=== PATIENT | female | born 1940 | race Caucasian/White ===

== ENCOUNTER 2018-08-01 09:30 | Outpatient (RCR) | payer MEDICARE, SELFPAY ==
--- NOTE | 2018-07-19 09:34 | HP.PTEVAL_ITS ---
Patient's Visit Information RADHA WHITESIDE is a 78 year old F referred to Physical Therapy by CONNIE ESTRADA with a diagnosis of Hip Bursitis. Date of Evaluation: 07/19/18 Physical Therapist: Greta Walsh DPT - Visit Plan Frequency: 2x /Week Duration: 4 Weeks Plan: Modality of US- exercises to increase core s/s- postural education - Subjective Findings: Patient reports that she has had right hip and back pain for years and its getting worse. Pain is located in the right hip/back and radiates to the knee and into the low back. Pain is aggravated by stairs (knees), bending over to work outside, mulching Worst:8/10 could barely walk when they were in [place]. But its better now. Eases: depends on the day but laying or sitting is better. But she can not lay on the right side. Describes the pain as trent p/shooting. Fell last winter on the ice and thats what has stirred all of this up. 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 Does have mild N/T in the right leg when she stands to long- the foot went numb but when she moved around it was better. Sleep: not usually distrubed- falls asleep on her belly but then wakes up on her back. Is very active- around her home. Winter in [place] and comes home in the summer. PMHx: none Meds: none at this time. Did use Vicoden for her pain and arthritis but is now off of them. - Objective Posture: FH, RS, increased kyphosis- can correct but does not maintain. Gait: slightly antalgic- decreased stance on right LE with mild hip drop. Stairs: asc/desc 8 recip with 2 HR and uses UE for propulsion with asc and to control descent. HR/TR: able in standing with UE A for balance. SLS: unable but does perform full weight shifting. Reflexes: diminished bilaterally. ROM: Lumbar: flexion- hands to mid iverson, Extn: mod restriction, SB and rotation: no restriction. Strength: Left Ankle: 5/5, Knee: 4+/5, Hip: 4/5 Core: poor, Right: ankle: 4+/5, Knee: 4-/5, Hip: 4/5 throughout- mild discomfort with knee and hip strength testing on the right. Flex: HS: moderate. Special Test: COLLIN: right positive, left negative, Slump: positive on the right, Dural Signs: positive on the right. Sensation: WNL to gross touch bilateral. Palpation: tender along lumbar paraspinals, sacrum and gluts to the greater troch - Goals Goal 1:: Patient will be I with HEP and progression Goal Time Frame: 4-6 Weeks Goal 2:: Patient will maintain proper posture t/o tx session to demo increased core s.s Goal Time Frame: 4-6 Weeks Goal 3:: Patient will report 0/10 pain for 1 week Goal Time Frame: 4-6 Weeks - Rehabilitation Potential Physical Therapy Diagnosis: Patient present with hypomobility- she has decreased ROM, strength and muscular endurance leading to poor posture and increased pain with ADL's. Rehabilitation Potential: Fair - Anticipated Interventions Patient/Client Instruction: Educate patient on: Benefits of Fitness Program Therapeutic Exercise to Include: Strength training, Endurance training, Balance training, Coordination, Agility training, Body mechanics, Postural training, Flexibilty training, Gait and locomotor training, Passive ROM, Active ROM, Dynamic Lumbar Stabilization For the Purpose of:: To improve muscle performance and motor function TENS: Yes Cryotherapy (ice pack, ice massage): Yes Thermo therapy (hot pack): Yes Ultrasound (thermal/non thermal): Yes Thank you for the opportunity to evaluate your patient. For Medicare and Medicare HMO plans, please review the plan of care and approve it. It will need to be FAXED BACK to us at [phone] for Medicare purposes. For Medicare only, by signing this I certify the plan of care. Please let me know if there are questions or concerns regarding this plan of care. Physician Signature: Date:
--- NOTE | 2018-11-15 14:55 | HP.PT.NRP ---
HP - Discharge Summary (1) - Patient Information RADHA WHITESIDE was seen in my office for initial evaluation on 07/19/18. The following Plan of Care was established for this patient: Initial Frequency: 2x /Week Initial Duration: 4 Weeks - Anticipated Interventions Patient/Client Instruction: Educate patient on: Benefits of Fitness Program Therapeutic Exercise to Include: Strength training, Endurance training, Balance training, Coordination, Agility training, Body mechanics, Postural training, Flexibilty training, Gait and locomotor training, Passive ROM, Active ROM, Dynamic Lumbar Stabilization For the Purpose of:: To improve muscle performance and motor function TENS: Yes Cryotherapy (ice pack, ice massage): Yes Thermo therapy (hot pack): Yes Ultrasound (thermal/non thermal): Yes This patient was last seen in our office . Pertinent comments regarding their Physical therapy will appear below: Patient has not attended PT in over 6 weeks and is appropriate for d/c and to return to MD for further evaluation as needed. At this point I will be discontinuing this patient from physical therapy. I would be happy to see this patient again in the future if found appropriate by the physician. Thank you! Greta Walsh DPT
== END 2018-08-01 19:00 | disposition home or self-care (01) ==
LOC: PT 09:30
PROVIDERS: Family Provider Family Medicine; PCP Family Medicine
DX: M70.61 Trochanteric bursitis, right hip (principal); M25.551 Pain in right hip
CPT/HCPCS: 97035; 97110; 97162; 97530

== ENCOUNTER 2024-08-13 07:22 | Inpatient (IN) | payer MEDICARE, SELFPAY ==
[2024-08-13] VITALS (13 sets, daily range): BP systolic 112–138; BP diastolic 53–86; PULSE 86–101; RESP 16–32; TEMP 36.8–37.6; O2SAT 91–97; BMI 33.0; BMI 34.0
--- NOTE | 2024-08-13 07:32 | EKG12_ITS ---
Test Reason : WEAKNESS Blood Pressure : */* mmHG Vent. Rate : 98 BPM Atrial Rate : 98 BPM P-R Int : 152 ms QRS Dur : 78 ms QT Int : 360 ms P-R-T Axes : 36 1 -9 degrees QTcB Int : 459 ms Normal sinus rhythm Low voltage QRS Borderline ECG Confirmed by Clemente Peterson ([id number]), newspaper editor managing ANNIE MOJICA ([id number]) on 08/14/2024 10:58:51 AM Referred By: Confirmed By: Clemente Peterson
--- NOTE | 2024-08-13 07:32 | EX.ED.DYSGE1 ---
HPI History of Present Illness Chief Complaint: Complaint Detail of Chief Complaint: Weakness and fall Informant: patient Narrative Narrative: Patient presents emergency department complaint of generalized weakness this morning and a fall. Patient states that she got up out of bed but could not walk and fell to the ground. Denies striking her head. Denies loss of consciousness. She is not anticoagulated. She states that she could not get back up. She started with some dysuria yesterday. She tells me she has had multiple UTIs since November has been on 5 rounds of antibiotics. Patient denies otherwise recent illness such as fever or cough. She denies chest pain or shortness of breath. She denies abdominal pain. She denies injury from the fall. [facility] Medical History (Updated 08/13/24 @ 09:[address] Melvina Rojo, DO) Arthritis Home Medications ?Medication ?Instructions ?Recorded ?Last Taken ?Type Alleviate Joint Supplement 1 tab PO DAILY 10/31/16 Unknown History Bendenine 1 tab PO DAILY 10/31/16 Unknown History cholecalciferol (vitamin D3) 50 2,000 unit PO DAILY 10/31/16 Unknown History mcg (2,000 unit) capsule (Vitamin D3) fish oil-dha-epa 1,200 mg-144 2 ea PO DAILY 10/31/16 Unknown History mg-216 mg capsule meclizine 25 mg tablet 25 mg PO TID PRN PRN Vertigo #30 10/31/16 Unknown Rx tabs vit C 250 mg-vit E 90 mg-zinc 40 1 ea PO DAILY 10/31/16 Unknown History mg-copper 1 [id number] capsule (PreserVision AREDS-2) Allergy/AdvReac Type Severity Reaction Status Date / Time Penicillins Allergy Hives Verified 08/13/24 07:31 Social History (Updated 03/11/21 @ 16:06 by Melinda Murguia) Smoking Status: Never smoker alcohol intake: never ROS ROS ED Review of Systems ROS Unobtainable: other Constitutional Constitutional ED: Reports lethargy; Denies chills, fever(s), sweats or weight loss Eyes Eyes: Denies blurry vision, change in vision or diplopia ENT ENT ED: Denies rhinorrhea or sore throat Cardiovascular Cardiovascular: Denies chest pain, orthopnea or racing heartbeat Respiratory/Chest Respiratory/Chest: Denies cough, dyspnea, dyspnea on exertion, orthopnea or sputum Gastrointestinal Gastrointestinal: Denies abdominal pain, diarrhea, nausea or vomiting Genitourinary Genitourinary ED: Reports dysuria; Denies hematuria or urinary frequency Musculoskeletal Musculoskeletal: Denies arthralgias, back pain, myalgias or neck pain Integumentary Denies abscess, Abrasions or rash Neurologic Neurologic: Reports weakness; Denies headache(s) Psychiatric Psychiatric: Denies anxiety, depression or suicidal thoughts Endocrine Endocrinology: Denies polydipsia, polyphagia or polyuria Hematologic/Lymphatic Hematologic/Lymphatic: Denies easy bleeding, easy bruising or lymphadenopathy Allergic/Immunologic Allergic/Immunologic ED: Denies mouth swelling, tongue swelling or urticaria EXAM Physical Exam Const Vital Signs: 08/13/24 07:24 08/13/24 07:26 08/13/24 07:50 Temperature 99.6 F H 99.6 F H Temperature Source Oral Oral Pulse Rate 101 H 101 H 98 Respiratory Rate 18 18 30 H Blood Pressure 138/69 H 138/69 H 123/65 H Blood Pressure Mean 92 92 84 Pulse Ox 91 91 92 Oxygen Delivery Method Room Air Room Air Room Air Oxygen Flow Rate (L/min) 08/13/24 07:59 08/13/24 08:36 08/13/24 08:38 Temperature 99.5 F H 99.6 F H Temperature Source Oral Oral Pulse Rate 90 91 Respiratory Rate 26 H 32 H Blood Pressure 132/86 H 132/86 H Blood Pressure Mean 101 101 Pulse Ox 94 96 96 Oxygen Delivery Method Nasal Cannula Nasal Cannula Nasal Cannula Oxygen Flow Rate (L/min) 2 2 2 Positive well nourished and well developed General Appearance ED: well developed and NAD HEENT Reports TM's clear and moist mucous membranes normocephalic and atraumatic; Negative for trauma or tenderness Tympanic Membrane ED: Yes TM's clear Eyes PERRL and EOMs intact bilaterally General Eye ED: Negative for pale conjunctiva or scleral icterus Neck no lymphadenopathy, supple and no JVD General: Negative for tenderness Chest Wall inspection of chest normal and palpation of chest normal Chest: Negative for tenderness Resp normal respiratory effort and clear to auscultation bilaterally Effort and Inspection: Negative for respiratory distress or pain with movement Auscultation: Negative for rhonchi, wheezes or diminished lung sounds Cardio regular rhythm, S1 normal heart sound, S2 normal heart sound and no murmurs Rate: tachycardic Peripheral Pulses: pulses 2+ throughout GI normal to inspection, nondistended, normoactive bowel sounds, soft to palpation, non-tender, non-distended and no masses Back/Spine no CVA tenderness and no thoracic nor lumbar tenderness Extremity Extremity Narrative: Superficial abrasions to both elbows. No bony tenderness on exam. No resting tach distally General Extremety ED: Negative for edema General Extremity: Negative for edema Neuro oriented x3, CN's II-XII intact bilaterally, no sensory deficits noted and gait normal Sensorium / Orientation: awake, alert, oriented to person, oriented to place and oriented to time Motor Exam: strength 5/5 throughout and strength abnormal Psych mental status grossly normal Skin no rashes or lesions noted and no wounds MDM MDM MDM Narrative Medical decision making narrative: Patient presents with generalized weakness and a fall this morning. He has history of UTIs. Started with some dysuria yesterday. Noted to have low-grade temp on arrival. Mild tachycardia. CBC with differential obtained on arrival showed a white count of 18.2 with hemoglobin 10 and platelet count of 161. Chemistries unremarkable. Lactate normal 1.8. Urinalysis obtained cath specimen was positive for nitrites as well as greater than 100 WBCs and +1 bacteria. Urine culture ordered. Blood cultures ordered. Patient started on Levaquin IV given her penicillin allergy. Will discuss with hospitalist evaluate for admission Lab Data Attestation: I reviewed the patient's lab results. Labs: Laboratory Results - last 24 hr 08/13/24 08/13/24 07:40 07:50 WBC 18.2 H RBC 4.23 Hgb 10.3 L Hct 33.8 L MCV 79.9 L MCH 24.3 L MCHC 30.5 L RDW Std Deviation 56.2 H RDW Coeff of Julio 20.2 H Plt Count 161 MPV 10.8 Immature Gran % (Auto) 2.400 H Neut % (Auto) 84.9 H Lymph % (Auto) 3.7 L [place] % (Auto) 8.3 Eos % (Auto) 0.4 Baso % (Auto) 0.3 Absolute Neuts (auto) 15.4 H Absolute Lymphs (auto) 0.68 L Nucleated RBC % 0 Differential Comment SCANNED Sodium 139 Potassium 3.3 Chloride 105 Carbon Dioxide 21.3 Anion Gap 13 BUN 13 Creatinine 0.75 Estim Creat Clear Calc 47.88 L Est GFR (MDRD) Non-Af 79 BUN/Creatinine Ratio 17.8 Glucose 126 H Lactic Acid 1.8 Calcium 9.1 Urine Color Yellow Urine Clarity Cloudy Urine pH 7.0 Ur Specific [place] 1.010 Urine Glucose (UA) Normal Urine Ketones 50 H Urine Occult Blood 150 H Urine Nitrite Positive H Urine Bilirubin Negative Urine Urobilinogen Normal Ur Leukocyte Esterase 500 H Urine RBC 0 SEEN Urine WBC >100 SEEN Ur Squamous Epith Cells 0 SEEN Amorphous Sediment 1+ Urine Bacteria 1+ Urine Mucus 0 SEEN EKG Initial EKG: Attestation: I personally reviewed and interpreted this EKG as follows: Comments: Sinus rhythm with rate of 98 bpm with no acute ST segment changes Discharge Plan Dx/Rx/DC Orders Clinical Impression: Weakness, Acute UTI Disposition Disposition: Acute Care [facility]
[2024-08-13] MEDS: 0.9% Normal Saline (1000mL) 1,000 ML 150 ML IV (07:58)
[2024-08-13 08:05] LABS: Mucous, Urine 0 SEEN /hpf (<or=2+); Red Blood Cells-Urine 0 SEEN /hpf (0-5); Squamous Epithelial Cells - UA 0 SEEN /hpf (5-10)
[2024-08-13 08:06] LABS: Absolute Lymphocyte Count 0.68 X10^3/uL (0.83-4.51); Absolute Neutrophil Count 15.4 X10^3/uL (2.0-7.7); Basophil# 0.05 X10^3/uL; Basophil% 0.3 % (0-1); Eosinophil# 0.08 X10^3/uL; Eosinophils% 0.4 % (0-5); Hematocrit 33.8 % (37-47); Hemoglobin 10.3 g/dL (12.0-15.0); Lymphocyte # 0.68 X10^3/ul (0.83-4.51); Lymphocyte % 3.7 % (19-41); Mean Corp Hgb Conc 30.5 g/dL (32-36); Mean Corpuscular Hgb 24.3 pg (27.0-32.0); Mean Corpuscular Volume 79.9 fL (81-99); Mean Platelet Vol. 10.8 fl (6.2-12.0); Monocyte# 1.52 X10^3/uL; Monocyte% 8.3 % (0-10); NRBC Flagged by Analyzer 0 % (0-5); Neutrophil # 15.44 X10^3/uL (2.7-7.7); Neutrophil % 84.9 % (47-70); POSITIVE DIFFERENTIAL YES; POSITIVE MORPHOLOGY YES; Platelet Count 161 K/mm3 (150-450); RBC Distribution Width CV 20.2 % (11.6-14.6); RBC Distribution Width SD 56.2 fl (35.1-43.9); Red Blood Count 4.23 M/mm3 (4.2-5.4); White Blood Count 18.2 K/mm3 (4.4-11.0)
[2024-08-13 08:11] LABS: Differential Indicated SCAN CRITERIA MET
[2024-08-13 08:18] LABS: Color, Urine Yellow (Yellow); Glucose, Dipstick Normal (Normal); Ketone-Dipstick 50 mg/dl (Negative); Leukocyte Esterase-Dipstick 500 /ul (Negative); Nitrite-Dipstick Positive (Negative); Occult Blood-Urine 150 /ul (Negative); Urine Bilirubin Dipstick Negative (Negative); Urine Clarity Cloudy (Clear); Urine Urobilinogen Normal (Normal)
[2024-08-13 08:32] LABS: Anion Gap 13 (5-15); BUN 13 mg/dL (4-19); BUN/Creat Ratio 17.8 RATIO (10-20); Calcium,Total 9.1 mg/dL (7.6-11.0); Carbon Dioxide 21.3 mmol/L (21.0-32.0); Chloride 105 mmol/L (98-108); Creatinine, Serum 0.75 mg/dL (0.70-1.20); EST Glomerular Filtration Rate 79 (>60); Estimated Creatinine Clearance 47.88 ml/min (50-250); Glucose 126 mg/dL (70-99); Potassium 3.3 mmol/L (3.3-5.1); Sodium Level 139 mmol/L (133-145)
[2024-08-13 08:33] LABS: Lactic Acid 1.8 mmol/L (0.0-2.0)
[2024-08-13 08:34] LABS: Differential Comment SCANNED
[2024-08-13 09:14] LABS: Amorphous Sediment 1+; Bacteria 1+ /hpf (None Seen); White Blood Cells >100 SEEN /hpf (0-5)
--- NOTE | 2024-08-13 09:27 | PCM.HP.STD ---
HPI - General General Date of Admission: 08/13/24 Date of Service: 08/13/24 Chief Complaint: Generalized weakness HPI Narrative RADHA WHITESIDE, is a 84 F in relatively good health who presented to the emergency department with generalized weakness. Per patient symptoms have been ongoing for past couple of days. She did complain of difficulty with ambulation. Patient also did admit to dysuria as well as frequency. Denied any subjective fever no chills. In view of persistence of his symptoms he presented to the emergency department. Workup did reveal presence of acute cystitis admitted to a monitored bed for further management [facility] Medical History (Updated 08/13/24 @ 09:[address] Melvina Rojo, DO) Arthritis Home Medications ?Medication ?Instructions ?Recorded ?Last Taken ?Type Alleviate Joint Supplement 1 tab PO DAILY 10/31/16 08/12/24 History cholecalciferol (vitamin D3) 50 2,000 unit PO DAILY 10/31/16 08/12/24 History mcg (2,000 unit) capsule (Vitamin D3) fish oil-dha-epa 1,200 mg-144 2 cap PO DAILY 10/31/16 08/12/24 History mg-216 mg capsule vit C 250 mg-vit E 90 mg-zinc 40 1 ea PO DAILY 10/31/16 08/12/24 History mg-copper 1 [id number] capsule (PreserVision AREDS-2) lifitegrast 5 % eye drops in a 1 drp ophthalmic (eye) BID 08/13/24 08/12/24 History dropperette (Xiidra) meclizine 25 mg tablet 25 mg PO TID PRN Vertigo 08/13/24 08/12/24 History Allergy/AdvReac Type Severity Reaction Status Date / Time Penicillins Allergy Hives Verified 08/13/24 07:31 Social History (Updated 03/11/21 @ 16:06 by Melinda Murguia) Smoking Status: Never smoker alcohol intake: never ROS ROS Narrative GENERAL: Generalized weak HEENT: denies headache, sinus congestion, or drainage, dysphagia RESPIRATORY: denies cough, sputum production, shortness of breath, dyspnea on exertion CARDIAC: denies chest pain, palpitations, orthopnea, PND GASTROINTESTINAL: denies abdominal pain, nausea, vomiting, melena, GENITOURINARY: dysuria, urgency, frequency, EXTREMITY: denies swelling MUSCULOSKELETAL: denies current joint pain or tenderness NEUROLOGIC: denies focal numbness, weakness, tingling HEMATOLOGIC: denies easy bruising and/or hemorrhage INTEGUMENT: denies rashes PSYCHIATRIC: denies suicidal or homicidal ideation Vital Signs Vital Signs Vital Signs: 08/13/24 07:24 08/13/24 07:26 08/13/24 07:50 Temperature 99.6 F H 99.6 F H Temperature Source Oral Oral Pulse Rate 101 H 101 H 98 Respiratory Rate 18 18 30 H Blood Pressure 138/69 H 138/69 H 123/65 H Blood Pressure Mean 92 92 84 Pulse Ox 91 91 92 Oxygen Delivery Method Room Air Room Air Room Air Oxygen Flow Rate (L/min) 08/13/24 07:59 08/13/24 08:36 08/13/24 08:38 Temperature 99.5 F H 99.6 F H Temperature Source Oral Oral Pulse Rate 90 91 Respiratory Rate 26 H 32 H Blood Pressure 132/86 H 132/86 H Blood Pressure Mean 101 101 Pulse Ox 94 96 96 Oxygen Delivery Method Nasal Cannula Nasal Cannula Nasal Cannula Oxygen Flow Rate (L/min) 2 2 2 Weight Weight: 76.6 kg Body Mass Index (BMI) 33.0 Physical Exam Narrative GENERAL: cooperative HEENT: Atraumatic; normocephalic EYES; Anicteric, Normal Conjunctiva NECK; supple, normal thyroid, RESPIRATORY: Diminished to auscultation CARDIOVASCULAR: Regular S1 S2, GI: soft, normoactive bowel sounds, : No Renal angle tenderness; EXTREMITIES: No edema, no clubbing, MUSCULOSKELETAL: no muscle wasting NEURO: Awake; no lateralizing signs. SKIN: No Rash PSYCH; Flat affect Results Lab / Micro Data 08/13/24 07:40 08/13/24 07:40 Labs: Laboratory Results - last 24 hr 08/13/24 07:40: WBC 18.2 H, RBC 4.23, Hgb 10.3 L, Hct 33.8 L, MCV 79.9 L, MCH 24.3 L, MCHC 30.5 L, RDW Std Deviation 56.2 H, RDW Coeff of Julio 20.2 H, Plt Count 161, MPV 10.8, Immature Gran % (Auto) 2.400 H, Neut % (Auto) 84.9 H, Lymph % (Auto) 3.7 L, [place] % (Auto) 8.3, Eos % (Auto) 0.4, Baso % (Auto) 0.3, Absolute Neuts (auto) 15.4 H, Absolute Lymphs (auto) 0.68 L, Nucleated RBC % 0, Differential Comment SCANNED, Sodium 139, Potassium 3.3, Chloride 105, Carbon Dioxide 21.3, Anion Gap 13, BUN 13, Creatinine 0.75, Estim Creat Clear Calc 47.88 L, Est GFR (MDRD) Non-Af 79, BUN/Creatinine Ratio 17.8, Glucose 126 H, Calcium 9.1, Urine Color Yellow, Urine Clarity Cloudy, Urine pH 7.0, Ur Specific [place] 1.010, Urine Glucose (UA) Normal, Urine Ketones 50 H, Urine Occult Blood 150 H, Urine Nitrite Positive H, Urine Bilirubin Negative, Urine Urobilinogen Normal, Ur Leukocyte Esterase 500 H, Urine RBC 0 SEEN, Urine WBC >100 SEEN, Ur Squamous Epith Cells 0 SEEN, Amorphous Sediment 1+, Urine Bacteria 1+, Urine Mucus 0 SEEN 08/13/24 07:50: Lactic Acid 1.8 Assessment & Plan Assessment/Plan (1) Acute UTI: (2) Weakness: PLAN: Plan Patient is an 84-year-old lady who presented with progressive generalized weakness found to have UTI admitted to monitored bed for further management 1. Acute complicated UTI ? Patient has been admitted to regular nursing floor started on antibiotic therapy per protocol?Levaquin patient is apparently allergic to penicillin. Urine and blood cultures were sent from the ED will follow-up on the result 2. Physical debility ? Secondary to patient acute complicated UTI admitted to regular nursing floor requested for PT OT eval and social insurance analyst to assist with discharge planning 3. Hypokalemia ? Corrected for protocol repeat potassium levels ordered in a.m. for response to therapy 4. Anemia ? Secondary to chronic disorder monitoring H&H and transfuse if patient becomes symptomatic or hemoglobin falls below 7 5. Class I obesity with BMI of 33.0 ? Complicating care 6. Generalized osteoarthritis ? Pain meds as needed 7. DVT prophylaxis ? On enoxaparin Advance planning; did discuss with the patient and family ([id number]) regarding advanced directives as well as CODE STATUS. Did explain the various scenarios involved ( FULL CODE, DNR CCA, DNR CCA with no intubation, and DNR CC and what each meant) patient elected to be DNR CCA no intubation. Order was placed. Time spent on discussion 16 minutes. Charges/Coding Multi Select Codes Visit Charges Visit Charges: 60844 Init Hosp L2 Hospitalists' Procedures Procedures: 31812 Advncd Care Plan 30 Min
[2024-08-13] MEDS: levoFLOXacin IV 750 MG/150 ML BAG 100 MG IV (09:40)
[2024-08-13 10:33] LABS: Protein, Urine (Random) 74.4 mg/dL (0.0-12.0)
[2024-08-13] MEDS: KCL 20MEQ in 0.9% NS 20 MEQ/1,000 ML IV.SOLN. 100 MEQ IV ×2 (10:54→21:05)
[2024-08-13] MEDS: 0.9% Saline Lock 10 ML Syringe IV (21:36)
[2024-08-13] MEDS: MELATONIN 3 MG TABLET PO (23:45)
[2024-08-14 02:29] VITALS: BP 131/81; PULSE 89; RESP 24; TEMP 36.7; O2SAT 93
[2024-08-14 04:46] VITALS: BMI 34.7
[2024-08-14 04:48] VITALS: BP 125/70; PULSE 96; RESP 24; TEMP 36.8; O2SAT 93
[2024-08-14 06:15] LABS: Absolute Lymphocyte Count 1.49 X10^3/uL (0.83-4.51); Absolute Neutrophil Count 11.4 X10^3/uL (2.0-7.7); Basophil# 0.05 X10^3/uL; Basophil% 0.3 % (0-1); Eosinophil# 0.11 X10^3/uL; Eosinophils% 0.8 % (0-5); Hematocrit 31.5 % (37-47); Hemoglobin 9.4 g/dL (12.0-15.0); Lymphocyte # 1.49 X10^3/ul (0.83-4.51); Lymphocyte % 10.3 % (19-41); Mean Corp Hgb Conc 29.8 g/dL (32-36); Mean Corpuscular Hgb 24.4 pg (27.0-32.0); Mean Corpuscular Volume 81.8 fL (81-99); Mean Platelet Vol. 11.6 fl (6.2-12.0); Monocyte# 1.33 X10^3/uL; Monocyte% 9.2 % (0-10); NRBC Flagged by Analyzer 0 % (0-5); Neutrophil # 11.36 X10^3/uL (2.7-7.7); Neutrophil % 78.2 % (47-70); POSITIVE MORPHOLOGY YES; Platelet Count 144 K/mm3 (150-450); RBC Distribution Width CV 20.5 % (11.6-14.6); RBC Distribution Width SD 59.9 fl (35.1-43.9); Red Blood Count 3.85 M/mm3 (4.2-5.4); White Blood Count 14.5 K/mm3 (4.4-11.0)
[2024-08-14 06:18] LABS: Differential Indicated SCAN CRITERIA MET
[2024-08-14 06:44] LABS: Anion Gap 11 (5-15); BUN 15 mg/dL (4-19); BUN/Creat Ratio 21.6 RATIO (10-20); Calcium,Total 8.4 mg/dL (7.6-11.0); Carbon Dioxide 21.6 mmol/L (21.0-32.0); Chloride 108 mmol/L (98-108); Creatinine, Serum 0.69 mg/dL (0.70-1.20); EST Glomerular Filtration Rate 86 (>60); Estimated Creatinine Clearance 47.35 ml/min (50-250); Glucose 97 mg/dL (70-99); Phosphorus 2.4 mg/dL (2.7-4.5); Potassium 3.4 mmol/L (3.3-5.1); Sodium Level 141 mmol/L (133-145)
[2024-08-14 06:56] LABS: Anisocytosis 2+; Differential Comment SCANNED; Platelet Estimate SLT INC (ADEQ)
[2024-08-14 06:57] LABS: Ovalocyte 1+
--- NOTE | 2024-08-14 07:20 | PCM.PN.HOSP ---
Reason for Visit Reason for Visit: Diagnoses Urinary tract infection, site not specified (08/13/24) Weakness (08/13/24) Subjective Subjective Patient is an 84-year-old lady admitted with progressive generalized weakness with urinary frequency dysuria. Workup consistent with acute complicated cystitis admitted to regular nursing floor for further manage Objective Data Objective Data Vital Signs: Vital Signs Temp Pulse Resp BP Pulse Ox O2 Del Method O2 Flow Rate 98.2 F 96 24 H 125/70 H 93 Room Air 1.5 08/14/24 04:48 08/14/24 04:48 08/14/24 04:48 08/14/24 04:48 08/14/24 04:48 08/14/24 04:48 08/13/24 11:44 Oxygen Flow Rate (L/min) 1.5 Oxygen Delivery Method Room Air Weight: 75 kg Body Mass Index (BMI) 34.7 Intake & Output: Intake and Output for Last 24 Hours 08/12/24 08/13/24 08/14/24 23:59 23:59 23:59 Intake Total 2855 / 2855 1000 / 1000 Output Total 600 / 600 100 / 100 Balance 2255 / 2255 900 / 900 Lab / Micro Data 08/14/24 05:20 08/14/24 05:20 Labs: Laboratory Results - last 24 hr 08/13/24 07:40: WBC 18.2 H, RBC 4.23, Hgb 10.3 L, Hct 33.8 L, MCV 79.9 L, MCH 24.3 L, MCHC 30.5 L, RDW Std Deviation 56.2 H, RDW Coeff of Julio 20.2 H, Plt Count 161, MPV 10.8, Immature Gran % (Auto) 2.400 H, Neut % (Auto) 84.9 H, Lymph % (Auto) 3.7 L, [place] % (Auto) 8.3, Eos % (Auto) 0.4, Baso % (Auto) 0.3, Absolute Neuts (auto) 15.4 H, Absolute Lymphs (auto) 0.68 L, Nucleated RBC % 0, Differential Comment SCANNED, Sodium 139, Potassium 3.3, Chloride 105, Carbon Dioxide 21.3, Anion Gap 13, BUN 13, Creatinine 0.75, Estim Creat Clear Calc 47.88 L, Est GFR (MDRD) Non-Af 79, BUN/Creatinine Ratio 17.8, Glucose 126 H, Calcium 9.1, Urine Color Yellow, Urine Clarity Cloudy, Urine pH 7.0, Ur Specific [place] 1.010, Urine Protein TNP, Urine Glucose (UA) Normal, Urine Ketones 50 H, Urine Occult Blood 150 H, Urine Nitrite Positive H, Urine Bilirubin Negative, Urine Urobilinogen Normal, Ur Leukocyte Esterase 500 H, Urine RBC 0 SEEN, Urine WBC >100 SEEN, Ur Squamous Epith Cells 0 SEEN, Amorphous Sediment 1+, Urine Bacteria 1+, Urine Mucus 0 SEEN, U Random Total Protein 74.4 H 08/13/24 07:50: Lactic Acid 1.8 08/14/24 05:20: WBC 14.5 H, RBC 3.85 L, Hgb 9.4 L, Hct 31.5 L, MCV 81.8, MCH 24.4 L, MCHC 29.8 L, RDW Std Deviation 59.9 H, RDW Coeff of Julio 20.5 H, Plt Count 144 L, MPV 11.6, Immature Gran % (Auto) 1.200 H, Neut % (Auto) 78.2 H, Lymph % (Auto) 10.3 L, [place] % (Auto) 9.2, Eos % (Auto) 0.8, Baso % (Auto) 0.3, Absolute Neuts (auto) 11.4 H, Absolute Lymphs (auto) 1.49, Nucleated RBC % 0, Differential Comment SCANNED, Platelet Estimate SLT INC, Anisocytosis 2+, Ovalocytes 1+, Sodium 141, Potassium 3.4, Chloride 108, Carbon Dioxide 21.6, Anion Gap 11, BUN 15, Creatinine 0.69 L, Estim Creat Clear Calc 47.35 L, Est GFR (MDRD) Non-Af 86, BUN/Creatinine Ratio 21.6 H, Glucose 97, Calcium 8.4, Phosphorus 2.4 L, Magnesium 2.0 Micro: Microbiology 08/13/24 08:50 Blood Culture (Wb) - Anticubital Left Blood Culture - Preliminary 08/13/24 07:50 Blood Culture (Wb) - Anticubital Right Blood Culture - Preliminary Physical Exam Narrative GENERAL: cooperative HEENT: Atraumatic; normocephalic EYES; Anicteric, Normal Conjunctiva NECK; supple, normal thyroid, RESPIRATORY: Diminished to auscultation CARDIOVASCULAR: Regular S1 S2, GI: soft, normoactive bowel sounds, : No Renal angle tenderness; EXTREMITIES: No edema, no clubbing, MUSCULOSKELETAL: no muscle wasting NEURO: Awake; no lateralizing signs. SKIN: No Rash PSYCH; Flat affect Assessment & Plan Assessment/Plan (1) Acute UTI: (2) Weakness: PLAN: Plan Patient is an 84-year-old lady who presented with progressive generalized weakness found to have UTI admitted to monitored bed for further management 1. Acute complicated UTI ? Patient has been admitted to regular nursing floor started on antibiotic therapy per protocol?Levaquin patient is apparently allergic to penicillin. Urine and blood cultures were sent from the ED will follow-up on the result ? 08/14/2024; WBC count remains elevated urine culture sent on admission results pending. Patient has apparently had recurrent UTIs and was scheduled to undergo imaging studies of the urinary tract system as outpatient subsequently ordered ultrasound of the bladder and kidneys. Ordered repeat CBC with differential in a.m. 2. Physical debility ? Secondary to patient acute complicated UTI admitted to regular nursing floor requested for PT OT eval and psychotherapist social worker to assist with discharge planning 3. Hypokalemia ? Corrected for protocol repeat potassium levels ordered in a.m. for response to therapy ? 08/14/2024; potassium still low at 3.5 additional replacement given 4. Anemia ? Secondary to chronic disorder monitoring H&H and transfuse if patient becomes symptomatic or hemoglobin falls below 7 ? 08/14/2024; hemoglobin down to 9.4 ordered ferritin level, iron and iron saturation as well as B12 levels. Will continue with monitoring of H&H 5. Class I obesity with BMI of 33.0 ? Complicating care 6. Generalized osteoarthritis ? Pain meds as needed 7. DVT prophylaxis ? On enoxaparin Charges/Coding Visit Charges Inpatient E&M: 57499 Subs Hosp L2
--- NOTE | 2024-08-14 07:26 | US_ITS ---
PROCEDURE: KIDNEY AND BLADDER 08/14/2024 REASON FOR EXAM: RECURRENT UTI TECHNIQUE: Bilateral renal ultrasound, to include the urinary bladder. COMPARISON: None. FINDINGS: Kidneys: Nonobstructive bilateral renal calculi are seen, with a right mid to superior renal calculus measured at 8 x 5 x 5 mm, and a left inferior calculus measured at 4 x 5 x 2 mm. A superior right renal simple appearing cyst is measured at 2.9 x 2.8 x 2.5 cm. No renal mass is seen. [place]: No evidence of hydronephrosis. Other: No free fluid is seen in visualized areas. The urinary bladder is incompletely distended, with estimated volume of 96.5 mL. No focal abnormality is seen, upon limited evaluation. Ureteral jets are not visualized. RIGHT Kidney Size: 11.0 x 5.1 x 4.5 cm Volume: 133 mL Cortical Thickness (if discernible): 15 mm (>6mm is normal) LEFT Kidney Size: 12.1 x 5.3 x 4.8 cm Volume: 162 mL Cortical Thickness (if discernible): 16 mm (>6mm is normal) US/Kidney and Bladder IMPRESSION: 1. Nonobstructive bilateral renal calculi. 2. No evidence of hydronephrosis. Reading Location: [id number]
[2024-08-14] MEDS: Potassium Chloride Oral Tablet 20 MEQ PO ×2 (08:01→17:00)
[2024-08-14 09:14] LABS: Ferritin 96 ng/mL (22-378); Iron 12 ug/dL (50-170); Iron Binding Capacity,Total 309 ug/dL (250-450); Iron Binding Capacity,Unsat 297 ug/dL (228-428); Vitamin B12 372 pg/mL (180-914)
--- NOTE | 2024-08-14 09:41 | CASEMGMT ---
JULIANN MARTINEZ Assessment: Face to Face with pt for initial transition planning/care coordination assessment. JULIANN MARTINEZ introduced self and role at [facility], pt voices understanding and consents to assessment. Pt is A&O x4 and answers all questions appropriately at this time. Pt sitting up in chair in no distress, daughter sitting at bedside. Pt agreeable to DC planning assessment with family member present. Care providers, pharmacy, and demographics verified/updated. Strata: 1 Admitting Dx: Acute Cystitis PCP: Ana Specialists: [facility] Preferred Pharmacy: [facility] Insurance: [employer] A B Prescription Benefit: yes LNOK: SonCharly Living Arrangements: Pt lives alone in a 1 story home with 2 steps and handrails to enter. Pt son lives next door. ADLs: Pt I with ADLs and mostly IADLs. Does get some assistance from family with house cleaning. Transportation: Pt uses [employer] transportation. DME: cane, but does not use. Pt states neighbor has a lot of DME available for the [employer] if needed, denies wanting a walker at this time. HHC/SNF: Denies Hx of. Pt states no concerns with going home at time of dc. Pt states no further concerns/needs. CM to follow. Advised pt to ask CM if any further question/concerns/needs arise, voices understanding. Pt Goal: Home Plan: Home with family support in place. Follow for safe DC plan. Bora HUMPHREYS CM
[2024-08-14 10:04] VITALS: BP 131/70; PULSE 89; RESP 16; TEMP 37.4; O2SAT 95
[2024-08-14] MEDS: Enoxaparin 40 MG/0.4 ML Syringe SC (10:13)
[2024-08-14] MEDS: Na Biphos/Potassium Phosphate PACKET 1 PACKET PO ×2 (10:14→21:41)
[2024-08-14 14:36] VITALS: BP 137/66; PULSE 94; RESP 16; TEMP 37.6; O2SAT 95
--- NOTE | 2024-08-14 16:13 | CHAPLAIN ---
Type of Pastoral Visit _x__ Initial Visit ___ Follow-up Visit ___ On-call Visit ___ General Patient Visit ___ Spiritual Assessment ___ Family Conference ___ Bereavement ___ Rapid Response ___ Code Blue ___ Other (describe below) Pastoral Care Referral From _x__ Patient ___ Family ___ Nurse ___ Physician ___ Manager Actuarial ___ Entry Specialists ___ Other (describe below) Sacrament/Intervention _x__ Active listening ___ Anointing ___ Jewish ___ Bereavement ___ Communion ___ Samara exploration ___ ___ Life review _x__ Prayer ___ Reconciliation ___ Sacrament of Sick ___ Supportive presence ___ Wedding ___ Other (describe below) Pastoral Comments patient is sitting up in the chair and a daughter is with her; pt states that she is doing fine with being in the hospital; daughter says that they are waiting on how things go in the next couple of days and report that pt is gaining some strength; pt denies needs but states that I can always use a prayer; presence and prayer given
[2024-08-14 21:25] VITALS: BP 141/90; PULSE 100; RESP 20; TEMP 38.6; O2SAT 94
[2024-08-14] MEDS: MELATONIN 3 MG TABLET PO (21:41)
[2024-08-14] MEDS: Acetaminophen 325 MG Tablet 650 MG PO (21:41)
[2024-08-14 23:42] VITALS: TEMP 37.2
[2024-08-15 04:29] VITALS: BP 139/72; PULSE 68; RESP 18; TEMP 36.5; O2SAT 96
[2024-08-15 05:17] VITALS: BMI 34.3
[2024-08-15 06:02] LABS: Absolute Lymphocyte Count 1.62 X10^3/uL (0.83-4.51); Basophil# 0.06 X10^3/uL; Basophil% 0.7 % (0-1); Eosinophil# 0.16 X10^3/uL; Eosinophils% 1.7 % (0-5); Hematocrit 32.9 % (37-47); Hemoglobin 9.8 g/dL (12.0-15.0); Lymphocyte # 1.62 X10^3/ul (0.83-4.51); Lymphocyte % 17.7 % (19-41); Mean Corp Hgb Conc 29.8 g/dL (32-36); Mean Corpuscular Hgb 24.4 pg (27.0-32.0); Mean Corpuscular Volume 81.8 fL (81-99); Mean Platelet Vol. 11.7 fl (6.2-12.0); Monocyte% 14.2 % (0-10); NRBC Flagged by Analyzer 0 % (0-5); Neutrophil # 5.96 X10^3/uL (2.7-7.7); Neutrophil % 64.9 % (47-70); POSITIVE MORPHOLOGY YES; Platelet Count 155 K/mm3 (150-450); RBC Distribution Width CV 20.7 % (11.6-14.6); RBC Distribution Width SD 61.1 fl (35.1-43.9); Red Blood Count 4.02 M/mm3 (4.2-5.4); White Blood Count 9.2 K/mm3 (4.4-11.0)
[2024-08-15 06:16] LABS: Differential Indicated SCAN CRITERIA MET
[2024-08-15 06:28] LABS: Anion Gap 11 (5-15); BUN 13 mg/dL (4-19); BUN/Creat Ratio 21.1 RATIO (10-20); Calcium,Total 8.5 mg/dL (7.6-11.0); Carbon Dioxide 21.8 mmol/L (21.0-32.0); Chloride 108 mmol/L (98-108); Creatinine, Serum 0.63 mg/dL (0.70-1.20); EST Glomerular Filtration Rate 88 (>60); Estimated Creatinine Clearance 47.09 ml/min (50-250); Glucose 103 mg/dL (70-99); Potassium 3.6 mmol/L (3.3-5.1); Sodium Level 140 mmol/L (133-145)
[2024-08-15 06:46] LABS: Anisocytosis 1+
--- NOTE | 2024-08-15 07:22 | PN.HOSP_ITS ---
Reason for Visit Reason for Visit: Diagnoses Urinary tract infection, site not specified (08/13/24) Weakness (08/13/24) Subjective Subjective Patient urine cultures so far positive for Presumptive E. coli [place] Count >100,000 CFU/mL. Renal ultrasound obtained the day prior did not show any evidence of structural defect.. Patient complains of extreme fatigue. Requested for PT OT eval Objective Data Objective Data Vital Signs: Vital Signs Temp Pulse Resp BP Pulse Ox O2 Del Method O2 Flow Rate 97.7 F L 68 18 139/72 H 96 Room Air 1.5 08/15/24 04:08/15/24 04:08/15/24 04:08/15/24 04:08/15/24 04:29 08/15/24 04:08/13/24 11:44 Oxygen Flow Rate (L/min) 1.5 Oxygen Delivery Method Room Air Weight: 74.2 kg Body Mass Index (BMI) 34.3 Intake & Output: Intake and Output for Last 24 Hours 08/13/24 08/14/24 08/15/24 23:59 23:59 23:59 Intake Total 2855 / 2855 1000 / 1000 500 / 500 Output Total 600 / 600 100 / 100 Balance 2255 / 2255 900 / 900 500 / 500 Lab / Micro Data 08/15/24 05:28 08/15/24 05:28 Labs: Laboratory Results - last 24 hr 08/14/24 05:20: Iron 12 L, TIBC 309, Iron Saturation 4.0 L, Unsaturated IBC 297, Ferritin 96, Vitamin B12 372 08/15/24 05:28: WBC 9.2, RBC 4.02 L, Hgb 9.8 L, Hct 32.9 L, MCV 81.8, MCH 24.4 L , MCHC 29.8 L, RDW Std Deviation 61.1 H, RDW Coeff of Julio 20.7 H, Plt Count 155, MPV 11.7, Immature Gran % (Auto) 0.800, Neut % (Auto) 64.9, Lymph % (Auto) 17.7 L, [place] % (Auto) 14.2 H, Eos % (Auto) 1.7, Baso % (Auto) 0.7, Absolute Neuts (auto) 6.0, Absolute Lymphs (auto) 1.62, Nucleated RBC % 0, Anisocytosis 1+, Sodium 140, Potassium 3.6, Chloride 108, Carbon Dioxide 21.8, Anion Gap 11, BUN 13, Creatinine 0.63 L, Estim Creat Clear Calc 47.09 L, Est GFR (MDRD) Non-Af 88, BUN/Creatinine Ratio 21.1 H, Glucose 103 H, Calcium 8.5 Micro: Microbiology 08/13/24 07:40 Urine, Clean Catch Urine Culture - Preliminary Presumptive E. coli 08/13/24 07:50 Blood Culture (Wb) - Anticubital Right Blood Culture - Preliminary GNR lactose operating room tech 08/13/24 08:50 Blood Culture (Wb) - Anticubital Left Blood Culture - Preliminary GNR lactose operating room tech Radiography Diagnostic Testing: Radiology Impression Renal Ultrasound 08/14/24 07:26 IMPRESSION: 1. Nonobstructive bilateral renal calculi. 2. No evidence of hydronephrosis. Reading Location: [address] Physical Exam Narrative GENERAL: cooperative HEENT: Atraumatic; normocephalic EYES; Anicteric, Normal Conjunctiva NECK; supple, normal thyroid, RESPIRATORY: Diminished to auscultation CARDIOVASCULAR: Regular S1 S2, GI: soft, normoactive bowel sounds, : No Renal angle tenderness; EXTREMITIES: No edema, no clubbing, MUSCULOSKELETAL: no muscle wasting NEURO: Awake; no lateralizing signs. SKIN: No Rash PSYCH; Flat affect Assessment & Plan Assessment/Plan (1) Acute UTI: (2) Weakness: PLAN: Plan Patient is an 84-year-old lady who presented with progressive generalized weakness found to have UTI admitted to monitored bed for further management 1. Acute complicated UTI ? Patient has been admitted to regular nursing floor started on antibiotic therapy per protocol?Levaquin patient is apparently allergic to penicillin. Urine and blood cultures were sent from the ED will follow-up on the result ? 08/14/2024; WBC count remains elevated urine culture sent on admission results pending. Patient has apparently had recurrent UTIs and was scheduled to undergo imaging studies of the urinary tract system as outpatient subsequently ordered ultrasound of the bladder and kidneys. Ordered repeat CBC with differential in a.m. ? 09/11/2024;Patient urine cultures so far positive for Presumptive E. coli [place] Count >100,000 CFU/mL. Renal ultrasound obtained the day prior did not show any evidence of structural defect.. Patient temperature maximum over the past 24 hours was 101.5 Will therefore continue with additional day of IV antibiotics prior to reassessing for possible discharge 2. Physical debility ? Secondary to patient acute complicated UTI admitted to regular nursing floor requested for PT OT eval and high school social science teacher to assist with discharge planning ? 08/15/2024; patient continues to complain of fatigue requested for additional therapy 3. Hypokalemia ? Corrected for protocol repeat potassium levels ordered in a.m. for response to therapy ? 08/14/2024; potassium still low at 3.5 additional replacement given 4. Anemia ? Secondary to chronic disorder monitoring H&H and transfuse if patient becomes symptomatic or hemoglobin falls below 7 ? 08/14/2024; hemoglobin down to 9.4 ordered ferritin level, iron and iron saturation as well as B12 levels. Will continue with monitoring of H&H 5. Class I obesity with BMI of 33.0 ? Complicating care 6. Generalized osteoarthritis ? Pain meds as needed 7. DVT prophylaxis ? On enoxaparin Charges/Coding Visit Charges Inpatient E&M: 43766 Subs Hosp L2
[2024-08-15 08:42] VITALS: BP 125/73; PULSE 78; RESP 18; TEMP 36.3; O2SAT 97
[2024-08-15] MEDS: Enoxaparin 40 MG/0.4 ML Syringe SC (08:53)
[2024-08-15] MEDS: Na Biphos/Potassium Phosphate PACKET 1 PACKET PO ×2 (08:53→22:04)
[2024-08-15] MEDS: Potassium Chloride Oral Tablet 20 MEQ PO ×2 (08:53→16:35)
[2024-08-15] MEDS: levoFLOXacin IV 750 MG/150 ML BAG 100 MG IV (10:37)
[2024-08-15 16:36] VITALS: BP 129/63; PULSE 86; RESP 16; TEMP 36.6; O2SAT 95
[2024-08-15 20:02] VITALS: BP 143/66; PULSE 90; RESP 18; TEMP 37; O2SAT 99
[2024-08-15] MEDS: Senna/Docusate Sodium 1 Tablet 2 TABLET PO (22:04)
[2024-08-15] MEDS: MELATONIN 3 MG TABLET PO (22:04)
[2024-08-16 04:53] VITALS: BP 141/60; PULSE 86; RESP 16; TEMP 37; O2SAT 96
[2024-08-16 06:00] VITALS: BMI 34.2
[2024-08-16 06:19] LABS: Absolute Lymphocyte Count 1.48 X10^3/uL (0.83-4.51); Absolute Neutrophil Count 3.4 X10^3/uL (2.0-7.7); Basophil# 0.05 X10^3/uL; Basophil% 0.8 % (0-1); Eosinophil# 0.11 X10^3/uL; Eosinophils% 1.7 % (0-5); Hematocrit 33.7 % (37-47); Hemoglobin 10.3 g/dL (12.0-15.0); Lymphocyte # 1.48 X10^3/ul (0.83-4.51); Lymphocyte % 23.3 % (19-41); Mean Corp Hgb Conc 30.6 g/dL (32-36); Mean Corpuscular Hgb 24.4 pg (27.0-32.0); Mean Corpuscular Volume 79.9 fL (81-99); Mean Platelet Vol. 12.1 fl (6.2-12.0); Monocyte# 1.32 X10^3/uL; Monocyte% 20.8 % (0-10); NRBC Flagged by Analyzer 0 % (0-5); Neutrophil # 3.35 X10^3/uL (2.7-7.7); Neutrophil % 52.9 % (47-70); POSITIVE MORPHOLOGY YES; Platelet Count 179 K/mm3 (150-450); RBC Distribution Width CV 20.3 % (11.6-14.6); RBC Distribution Width SD 58.1 fl (35.1-43.9); Red Blood Count 4.22 M/mm3 (4.2-5.4); White Blood Count 6.3 K/mm3 (4.4-11.0)
[2024-08-16 06:25] LABS: Differential Indicated SCAN CRITERIA MET
[2024-08-16 06:48] LABS: Anion Gap 11 (5-15); BUN 9 mg/dL (4-19); BUN/Creat Ratio 16.4 RATIO (10-20); Calcium,Total 8.6 mg/dL (7.6-11.0); Carbon Dioxide 21.9 mmol/L (21.0-32.0); Chloride 105 mmol/L (98-108); Creatinine, Serum 0.55 mg/dL (0.70-1.20); EST Glomerular Filtration Rate 90 (>60); Estimated Creatinine Clearance 47.05 ml/min (50-250); Glucose 103 mg/dL (70-99); Potassium 3.8 mmol/L (3.3-5.1); Sodium Level 138 mmol/L (133-145)
--- NOTE | 2024-08-16 07:12 | PN.HOSP_ITS ---
Reason for Visit Reason for Visit: Diagnoses Urinary tract infection, site not specified (08/13/24) Weakness (08/13/24) Subjective Subjective Patient seen clinical condition much improved. Plans for patient to be discharged home today Objective Data Objective Data Vital Signs: Vital Signs Temp Pulse Resp BP Pulse Ox O2 Del Method O2 Flow Rate 98.6 F 86 16 141/60 H 96 Room Air 1.5 08/16/24 04:53 08/16/24 04:53 08/16/24 04:53 08/16/24 04:53 08/16/24 04:53 08/16/24 05:12 08/13/24 11:44 Oxygen Flow Rate (L/min) 1.5 Oxygen Delivery Method Room Air Weight: 74.1 kg Body Mass Index (BMI) 34.2 Intake & Output: Intake and Output for Last 24 Hours 08/14/24 08/15/24 08/16/24 23:59 23:59 23:59 Intake Total 1000 / 1000 950 / 950 500 / 500 Output Total 100 / 100 Balance 900 / 900 950 / 950 500 / 500 Lab / Micro Data 08/16/24 05:27 08/16/24 05:27 Labs: Laboratory Results - last 24 hr 08/16/24 05:27: WBC 6.3, RBC 4.22, Hgb 10.3 L, Hct 33.7 L, MCV 79.9 L, MCH 24.4 L, MCHC 30.6 L, RDW Std Deviation 58.1 H, RDW Coeff of Julio 20.3 H, Plt Count 179, MPV 12.1 H, Immature Gran % (Auto) 0.500, Neut % (Auto) 52.9, Lymph % (Auto) 23.3, [place] % (Auto) 20.8 H, Eos % (Auto) 1.7, Baso % (Auto) 0.8, Absolute Neuts (auto) 3.4, Absolute Lymphs (auto) 1.48, Nucleated RBC % 0, Sodium 138, Potassium 3.8, Chloride 105, Carbon Dioxide 21.9, Anion Gap 11, BUN 9, C [place]atin[place] 0.55 L, Estim Creat Clear Calc 47.05 L, Est GFR (MDRD) Non-Af 90, BUN/Creatinine Ratio 16.4, Glucose 103 H, Calcium 8.6 Micro: Microbiology 08/13/24 07:50 Blood Culture (Wb) - Anticubital Right Blood Culture - Final GNR lactose plate inspector 08/13/24 07:40 Urine, Clean Catch Urine Culture - Final Presumptive E. coli 08/13/24 08:50 Blood Culture (Wb) - Anticubital Left Blood Culture - Final Escherichia coli Physical Exam Narrative GENERAL: cooperative HEENT: Atraumatic; normocephalic EYES; Anicteric, Normal Conjunctiva NECK; supple, normal thyroid, RESPIRATORY: Diminished to auscultation CARDIOVASCULAR: Regular S1 S2, GI: soft, normoactive bowel sounds, : No Renal angle tenderness; EXTREMITIES: No edema, no clubbing, MUSCULOSKELETAL: no muscle wasting NEURO: Awake; no lateralizing signs. SKIN: No Rash PSYCH; Flat affect Assessment & Plan Assessment/Plan (1) Acute UTI: (2) Weakness: PLAN: Plan Patient is an 84-year-old lady who presented with progressive generalized weakness found to have UTI admitted to monitored bed for further management 1. Acute complicated UTI ? Patient has been admitted to regular nursing floor started on antibiotic therapy per protocol?Levaquin patient is apparently allergic to penicillin. Urine and blood cultures were sent from the ED will follow-up on the result ? 08/14/2024; WBC count remains elevated urine culture sent on admission results pending. Patient has apparently had recurrent UTIs and was scheduled to undergo imaging studies of the urinary tract system as outpatient subsequently ordered ultrasound of the bladder and kidneys. Ordered repeat CBC with differential in a.m. ? 08/15/2024;Patient urine cultures so far positive for Presumptive E. coli [place] Count >100,000 CFU/mL. Renal ultrasound obtained the day prior did not show any evidence of structural defect.. Patient temperature maximum over the past 24 hours was 101.5 Will therefore continue with additional day of IV antibiotics prior to reassessing for possible discharge ? 08/16/2024; patient stable to be discharged with plans for patient to follow-up with Dr. Nicole with urology as 2. Physical debility ? Secondary to patient acute complicated UTI admitted to regular nursing floor requested for PT OT eval and criminal justice social worker to assist with discharge planning ? 08/15/2024; patient continues to complain of fatigue requested for additional therapy 3. Hypokalemia ? Corrected for protocol repeat potassium levels ordered in a.m. for response to therapy ? 08/14/2024; potassium still low at 3.5 additional replacement given 4. Anemia ? Secondary to chronic disorder monitoring H&H and transfuse if patient becomes symptomatic or hemoglobin falls below 7 ? 08/14/2024; hemoglobin down to 9.4 ordered ferritin level, iron and iron saturation as well as B12 levels. Will continue with monitoring of H&H 5. Class I obesity with BMI of 33.0 ? Complicating care 6. Generalized osteoarthritis ? Pain meds as needed 7. DVT prophylaxis ? On enoxaparin
[2024-08-16 07:56] VITALS: O2SAT 97
[2024-08-16 08:00] VITALS: BP 144/63; PULSE 80; RESP 16; TEMP 36.4; O2SAT 94
[2024-08-16] MEDS: Na Biphos/Potassium Phosphate PACKET 1 PACKET PO (08:10)
[2024-08-16] MEDS: Potassium Chloride Oral Tablet 20 MEQ PO (08:10)
[2024-08-16] MEDS: Enoxaparin 40 MG/0.4 ML Syringe SC (08:11)
--- NOTE | 2024-08-16 08:17 | PCM.DC.SUM ---
Providers Date of Admission: 08/13/24 Date of Discharge: 08/16/24 Primary Care Physician: Dr. Ginette Perez, DO Reason For Visit: ACUTE CYSTITIS Diagnosis Discharge Diagnosis (1) Acute UTI: Status: Acute Code(s): N39.0 - Urinary tract infection, site not specified (2) Weakness: Status: Acute Code(s): R53.1 - Weakness Plan Patient is an 84-year-old lady who presented with progressive generalized weakness found to have UTI admitted to monitored bed for further management 1. Acute complicated UTI with E. coli with bacteremia ? Patient has been admitted to regular nursing floor started on antibiotic therapy per protocol?Levaquin patient is apparently allergic to penicillin. Urine and blood cultures were sent from the ED will follow-up on the result ? 08/14/2024; WBC count remains elevated urine culture sent on admission results pending. Patient has apparently had recurrent UTIs and was scheduled to undergo imaging studies of the urinary tract system as outpatient subsequently ordered ultrasound of the bladder and kidneys. Ordered repeat CBC with differential in a.m. ? 08/15/2024;Patient urine cultures so far positive for Presumptive E. coli [place] Count >100,000 CFU/mL. Renal ultrasound obtained the day prior did not show any evidence of structural defect.. Patient temperature maximum over the past 24 hours was 101.5 Will therefore continue with additional day of IV antibiotics prior to reassessing for possible discharge ? 08/16/2024; patient stable to be discharged with plans for patient to follow-up with Dr. Nicole with urology as 2. Physical debility ? Secondary to patient acute complicated UTI admitted to regular nursing floor requested for PT OT eval and social work administrator to assist with discharge planning ? 08/15/2024; patient continues to complain of fatigue requested for additional therapy 3. Hypokalemia ? Corrected for protocol repeat potassium levels ordered in a.m. for response to therapy ? 08/14/2024; potassium still low at 3.5 additional replacement given 4. Anemia ? Secondary to chronic disorder monitoring H&H and transfuse if patient becomes symptomatic or hemoglobin falls below 7 ? 08/14/2024; hemoglobin down to 9.4 ordered ferritin level, iron and iron saturation as well as B12 levels. Will continue with monitoring of H&H 5. Class I obesity with BMI of 33.0 ? Complicating care 6. Generalized osteoarthritis ? Pain meds as needed 7. DVT prophylaxis ? On enoxaparin Medications at Discharge Home Medications Alleviate Joint Supplement 1 tab PO DAILY 10/31/16 cholecalciferol (vitamin D3) 50 mcg (2,000 unit) capsule (Vitamin D3) 2,000 unit PO DAILY 10/31/16 fish oil-dha-epa 1,200 mg-144 mg-216 mg capsule 2 cap PO DAILY 10/31/16 vit C 250 mg-vit E 90 mg-zinc 40 mg-copper 1 la-auroww-nbhxyo capsule (PreserVision AREDS-2) 1 ea PO DAILY 10/31/16 lifitegrast 5 % eye drops in a dropperette (Xiidra) 1 drp ophthalmic (eye) BID 08/13/24 meclizine 25 mg tablet 25 mg PO TID PRN Vertigo 08/13/24 L.acidophil,salivari-Bifido bifidum-Strep thermoph 175 mg capsule 1 cap PO BID #60 caps 08/16/24 ciprofloxacin HCl 500 mg tablet (Cipro) 500 mg PO BID 12 days #24 tabs 08/16/24 potassium chloride 20 mEq tablet,extended release(part/cryst) 20 meq PO BIDCM #30 tabs 08/16/24 potassium, sodium phosphates 280 mg-160 mg-250 mg oral powder packet 1 packet PO BID #30 ea 08/16/24 Hospital Course Summary of Care Provided Minutes Spent on Discharge: 35 Physical Exam Narrative GENERAL: cooperative HEENT: Atraumatic; normocephalic EYES; Anicteric, Normal Conjunctiva NECK; supple, normal thyroid, RESPIRATORY: Diminished to auscultation CARDIOVASCULAR: Regular S1 S2, GI: soft, normoactive bowel sounds, : No Renal angle tenderness; EXTREMITIES: No edema, no clubbing, MUSCULOSKELETAL: no muscle wasting NEURO: Awake; no lateralizing signs. SKIN: No Rash PSYCH; Flat affect Weight / BMI Weight Weight: 74.1 kg Body Mass Index (BMI) 34.2 ABG / Lab / Microbiology Data 08/16/24 05:27 08/16/24 05:27 Laboratory: Laboratory Results - last 24 hr 08/16/24 05:27: WBC 6.3, RBC 4.22, Hgb 10.3 L, Hct 33.7 L, MCV 79.9 L, MCH 24.4 L, MCHC 30.6 L, RDW Std Deviation 58.1 H, RDW Coeff of Julio 20.3 H, Plt Count 179, MPV 12.1 H, Immature Gran % (Auto) 0.500, Neut % (Auto) 52.9, Lymph % (Auto) 23.3, [place] % (Auto) 20.8 H, Eos % (Auto) 1.7, Baso % (Auto) 0.8, Absolute Neuts (auto) 3.4, Absolute Lymphs (auto) 1.48, Nucleated RBC % 0, Sodium 138, Potassium 3.8, Chloride 105, Carbon Dioxide 21.9, Anion Gap 11, BUN 9, Creatinine 0.55 L, Estim Creat Clear Calc 47.05 L, Est GFR (MDRD) Non-Af 90, BUN/Creatinine Ratio 16.4, Glucose 103 H, Calcium 8.6 Microbiology: Microbiology 08/13/24 07:50 Blood Culture (Wb) - Anticubital Right Blood Culture - Final GNR lactose .net developer 08/13/24 07:40 Urine, Clean Catch Urine Culture - Final Presumptive E. coli 08/13/24 08:50 Blood Culture (Wb) - Anticubital Left Blood Culture - Final Escherichia coli D/C Instructions Discharge Diet: No restrictions Discharge Activity: Return to Normal Activity Call your doctor if you observe: Fever of 101 or Higher, Shortness of breath, Fainting spells and Chest pain DC O2, CPAP, BIPAP Needs Home O2 Discharge instructions: No Meaningful Use Info Meaningful Use Meaningful Use Diagnoses (Choose all that apply): None applicable Ischemic Stroke Statin Dosing Therapy Reference: STATIN DOSE THERAPY REFERENCE: * Patients > 75 years receive moderate or high dose statin therapy. * Patients 75 years or YOUNGER should receive HIGH intensity statin dose unless contraindicated. You will be required to document reason for non-treatment if statin daily dose does not meet guidelines. HIGH DOSE STATIN THERAPY DAILY Atorvastatin > than or = to 40 mg Rosuvastatin > than or = to 20 mg Amlodipine + Atorvastatin > than or = to 2.5/40 mg Ezetimibe + Simvastatin 10/80 mg Simvastatin 80mg Discharge Plan Admission Admit Date/Time: 08/13/24 09:27 Attending Provider: Toño Og Primary Care Provider: Ginette Perez Discharge Orders/Prescriptions Prescriptions: New ciprofloxacin HCl [Cipro] 500 mg tablet 500 mg PO BID 12 Days Qty: 24 0RF potassium chloride 20 mEq Tablet,Er Particles/Crystals 20 meq PO BIDCM Qty: 30 0RF potassium, sodium phosphates 280-160-250 mg Powder In Packet 1 packet PO BID Qty: 30 0RF L.acidoph,saliva-B.bif-S.therm 175 mg Capsule 1 cap PO BID Qty: 60 0RF Continued Alleviate Joint Supplement 1 tab PO DAILY fish oil-dha-epa 1 EACH capsule 2 cap PO DAILY cholecalciferol (vitamin D3) [Vitamin D3] 2,000 UNIT capsule 2,000 unit PO DAILY PreserVision AREDS-2 1 EACH capsule 1 ea PO DAILY meclizine 25 MG tablet 25 mg PO TID PRN (Reason: Vertigo) Xiidra 5 % dropperette 1 drp ophthalmic (eye) BID Referrals / Follow Up: Ginette Perez DO [Primary Care Provider] - Within 2 Weeks [facility] Doctor,Out of [Non-Staff] - Disposition Disposition (needs filled in before D/C Order can be placed): Home, Self Care Charges/Coding Visit Charges Inpatient E&M: 41328 Disch Hosp >30min
[2024-08-16] MEDS: Lactobacillis Acidophilus 1 CAP PO (10:33)
--- NOTE | 2024-08-16 11:29 | PHA.DC_ITS ---
Pharmacy [facility] Counseling Pharmacy Service has performed discharge medication reconciliation and counseling for this patient. 1. CIPROFLOXACIN 500MG PO BID X 7 DAYS 2. LACTOBACILLUS 1C PO BID 3. POTASSIUM CHLORIDE 20MEQ PO BIDCM 4. NEUTRA-PHOS 1 PACKET PO BID The patient's discharge medication list was reviewed for discrepancies and discrepancies were resolved. The patient was counseled on the following discharge medications and changes in medications for homegoing were reviewed. The Reason for Use, instructions for use, and potential side effects were reviewed for all new medications. The patient's questions regarding all of their medications were answered. The patient was able to verbally demonstrate an understanding of their discharge medications. Medications at Discharge Home Medications Alleviate Joint Supplement 1 tab PO DAILY 10/31/16 cholecalciferol (vitamin D3) 50 mcg (2,000 unit) capsule (Vitamin D3) 2,000 unit PO DAILY 10/31/16 fish oil-dha-epa 1,200 mg-144 mg-216 mg capsule 2 cap PO DAILY 10/31/16 vit C 250 mg-vit E 90 mg-zinc 40 mg-copper 1 fl-tiwlkh-wdrliz capsule (PreserVision AREDS-2) 1 ea PO DAILY 10/31/16 lifitegrast 5 % eye drops in a dropperette (Xiidra) 1 drp ophthalmic (eye) BID 08/13/24 meclizine 25 mg tablet 25 mg PO TID PRN Vertigo 08/13/24 L.acidophil,salivari-Bifido bifidum-Strep thermoph 175 mg capsule 1 cap PO BID #60 caps 08/16/24 ciprofloxacin HCl 500 mg tablet (Cipro) 500 mg PO BID 12 days #24 tabs 08/16/24 potassium chloride 20 mEq tablet,extended release(part/cryst) 20 meq PO BIDCM #30 tabs 08/16/24 potassium, sodium phosphates 280 mg-160 mg-250 mg oral powder packet 1 packet PO BID #30 ea 08/16/24
== END 2024-08-16 12:59 | disposition home or self-care (01) | DRG 690 ==
LOC: ED 09:24 → MS3 10:00
PROVIDERS: Admitting Provider Internal Medicine; Emergency Provider Emergency Medicine; PCP Family Medicine; Visit Provider Internal Medicine
DX: N39.0 Urinary tract infection, site not specified (principal); R78.81 Bacteremia; Z66 Do not resuscitate; D64.9 Anemia, unspecified; E66.811 Obesity, class 1; M15.9 Polyosteoarthritis, unspecified; E87.6 Hypokalemia; B96.20 Unspecified Escherichia coli [E. coli] as the cause of diseases classified elsewhere; R53.1 Weakness; Z68.33 Body mass index [BMI] 33.0-33.9, adult
CPT/HCPCS: 36415; 76770; 80048; 81001; 82607; 82728; 83540; 83550; 83605; 83735; 84100; 84156; 85025; 87040; 87077; 87086; 87088; 87186; 93005; 94668; 97162; 97166; 97530; 99252; 99285; P9612; A4216; G0463

== ENCOUNTER → 2024-10-02 | Outpatient (CLI) | payer MEDICARE, SELFPAY ==
[2024-10-02 12:14] LABS: SERUM TEARS COLLECTION SPECIMEN PROCESSED
== END | disposition home or self-care (01) ==
PROVIDERS: PCP Family Medicine; Referring Provider Ophthalmology; Visit Provider Ophthalmology
DX: Z00.00 Encounter for general adult medical examination without abnormal findings (principal)